=== PATIENT | female | born 1955 | race Caucasian/White ===

== ENCOUNTER 2019-07-11 09:27 | Inpatient (IN) ==
--- NOTE | 2019-07-11 09:35 | PROVIDER DOCUMENTATION ---
HPI-General Adult - General Stated Complaint: SHORTNESS OF BREATH Time Seen by Provider: 07/11/19 09:34 Source: patient Allergies/Adverse Reactions: Patient Allergies Allergy/AdvReac Type Severity Reaction Status Date / Time NSAIDS (Non-Steroidal Allergy ANAPHYLAXIS Verified 07/11/19 10:22 Anti-Inflamma Home Medications: Home Medication List Medication Instructions Recorded Confirmed Last Taken Type Bupropion [Wellbutrin] 100 mg PO DAILY 07/07/16 07/11/19 Unknown History Citalopram Hydrobromide [Celexa] 20 mg PO DAILY 07/07/16 07/11/19 Unknown History Losartan/Hydrochlorothiazide 50 mg PO DAILY 07/07/16 07/11/19 Unknown History [Losartan-Hctz 100-12.5 mg Tab] Metoprolol [Lopressor] 50 mg PO DAILY 07/07/16 07/11/19 Unknown History Ondansetron Odt [Zofran Odt] 4 mg PO TID PRN 07/07/16 07/11/19 Unknown History Cetirizine HCl [Zyrtec] 10 mg PO DAILY 07/08/16 07/11/19 Unknown History Venlafaxine E.r. [Effexor Xr] 150 mg PO DAILY 08/23/18 07/11/19 Unknown History Amlodipine [Norvasc] 5 mg PO DAILY 07/11/19 07/11/19 Unknown History Tizanidine [Zanaflex] 4 mg PO BID 07/11/19 07/11/19 Unknown History - History of Present Illness -Gen Adult Nature of Presenting Problems: Pt. is 64 yof that presents with c/o SOB. Pt. reports symptoms for two weeks. She states she has been to med surg twice and is currently on her second round of levaquin for the treatment of pneumonia. Pt. reports she is still SOB and doesn't feel well. Pt. denies any fever or other symptoms. Location of Pain/Injury: reports: none. denies: head, face, mouth, neck, chest, upper extremity, hand(s), abdomen, back, pelvis, genitalia, lower extremity, feet, upper body, lower body, generalized, other Pain Radiation: reports: no radiation. denies: arm(s), back, buttocks, chest, epigastric, feet, groin, jaw, flank (L), legs (lower), LLQ, LUQ, neck, periumbilical, flank (R), RLQ, RUQ, shoulder(s), scapula, scrotal, sternal notch, suprapubic, legs (upper), urethral, vaginal, other Quality of Pain: reports: none. denies: aching, pressure, tightness Severity: reports: moderate. denies: mild, severe Onset/Duration: reports: gradual, other (Two weeks) Timing: reports: still present Context/Activities at Onset: reports: none. denies: light activity, moderate activity, vigorous activity, recent emotional stress, recent physical stress, recent trauma history, possible bad food, cold exposure, eating, out of country travel, rest, sleep, sexual activity, other Modifying Factors: improves with: nothing Associated Symptoms: reports: shortness of breath. denies: denies symptoms, anxiety, arm pain, back/neck pain, chest pain, constipation, cough, diaphoresis, diarrhea, dizziness, EENT symptoms, fatigue, fever/chills, genitourinary problems, headaches, heartburn, joint pain, loss of appetite, malaise, muscle aches, sinus congestion/drainage, nausea, rash, seizure, sensory/motor loss, pain with inspiration, swelling/mass in abdomen, syncope, vomiting, weakness, trouble walking, other Similar Symptoms Previously?: Yes Recently seen or treated by another doctor?: Yes Review of Systems - Adult - REVIEW OF SYSTEMS - ADULT Constitutional: reports: no symptoms reported Eyes: reports: no symptoms reported Ears, Nose, Mouth & Throat: reports: no symptoms reported Cardiovascular: reports: no symptoms reported Respiratory: reports: see HPI, dyspnea on exertion, shortness of breath. denies: chronic cough, cough, hemoptysis Gastrointestinal: reports: no symptoms reported Genitourinary: reports: no symptoms reported Musculoskeletal: reports: no symptoms reported Integumentary: reports: no symptoms reported Neurological: reports: no symptoms reported Psychiatric: reports: no symptoms reported Past History - Adult - PAST MEDICAL HISTORY-ADULT Review of Records: reports: Old Records Reviewed, Nursing Assessment Review, Medications Reviewed, Social history reviewed & non-contributory. Major Childhood Illnesses: reports: denies history Cardiovascular: reports: HTN Respiratory: reports: asthma Gastrointestinal: reports: IBS Obstetrical/Gynecological: reports: denies history Genitourinary: reports: denies history Musculoskeletal: reports: denies history Neurological: reports: denies history Endocrine/Immune: reports: denies history Other Conditions: reports: denies history - PRIOR SURGERIES/PROCEDURES Surgical/Procedure History: reports: appendectomy, hysterectomy, other (Lap Band 6 years ago) - IMMUNIZATION STATUS Childhood Immunizations: See Nurse Assessment Flu Vaccine: See Nurse Assessment - FAMILY HISTORY Family History: reviewed, not pertinent - SOCIAL HISTORY Smoking: denies Physical Exam-General - PHYSICAL EXAM-ADULT Initial Vital Signs Reviewed: Yes - CONSTITUTIONAL General Appearance: alert, mild distress, obese. negative: anxious, slow to respond, obtunded, combative - EYES Eyes: PERRL/EOMI, pink conjunctivae - HEAD, EARS, NOSE, MOUTH & THROAT HENMT: normocephalic/atraumatic, moist mucous membranes - NECK Neck: non-tender, full range of motion, supple, normal inspection - RESPIRATORY Respiratory: lungs clear, normal breath sounds. negative: crackles, rales, rhonchi, stridor, wheezing - CARDIOVASCULAR Cardiovascular: regular rate, rhythm, bradycardia - GASTROINTESTINAL (ABDOMEN) Abdominal Exam: normal bowel sounds, non tender, soft - LYMPHATIC Lymphatic: no adenopathy - MUSCULOSKELETAL Back Exam: normal inspection, no CVA tenderness, no vertebral tenderness Extremity: normal range of motion, non-tender, normal gait, normal inspection Peripheral Pulses: radial (R): 2+, radial (L): 2+ - SKIN Integumentary: normal color, normal turgor, warm/dry - NEUROLOGIC Neurologic: grossly normal, no motor/sensory deficits - PSYCHIATRIC Psych/Mental Status: normal mood/affect, normal thought content, normal thought process, oriented x 3. negative: anxious, paranoid, tearful Progress - PLAN OF CARE/RESULTS Progress/Plan/Lab Results: Laboratory Tests 07/11/19 07/11/19 07/11/19 10:25 10:28 10:28 WBC 11.53 H RBC 3.65 L Hgb 11.7 L Hct 36.4 L MCV 99.7 H MCH 32.1 H MCHC 32.1 L RDW Std Deviation 14.7 H Plt Count 321 MPV 9.7 Immature Gran % (Auto) 0.6 H Neut % (Auto) 70.1 Lymph % (Auto) 16.8 L [place] % (Auto) 9.8 H Eos % (Auto) 2.4 Baso % (Auto) 0.3 Immature Gran # (Auto) 0.07 H Neut # (Auto) 8.07 H Lymph # (Auto) 1.94 [place] # (Auto) 1.13 H Eos # (Auto) 0.28 Baso # (Auto) 0.04 D-Dimer, Quantitative Specimen Type ARTERIAL Sample Site R RADIAL pH 7.43 pCO2 40 pO2 82 HCO3 26.5 H Base Excess 2.0 Oxyhemoglobin 95.4 ABG O2 Sat (Calculated) 15.5 ABG O2 Saturation 97.5 ABG Carboxyhemoglobin 1.30 ABG Methemoglobin 0.8 Prabhjot Test YES A-a O2 Difference 18.0 Total Hemoglobin 11.5 Lactate 1.60 Blood Gas Modality ROOM AIR FiO2 % 21.0 Sodium Potassium Chloride Carbon Dioxide Anion Gap BUN Creatinine Estimated GFR/1.73 m2 BUN/Creatinine Ratio Glucose Calculated Osmolality Calcium Total Bilirubin AST ALT Alkaline Phosphatase Creatine Kinase Troponin T Ogb-V-Lxkznulnwwd Pept 200 Total Protein Albumin Globulin Albumin/Globulin Ratio Plasma Lactate Urine Source Urine Color Urine Turbidity Urine pH Ur Specific [place] Urine Protein Ur Glucose (Stick) Ur Ketones (Stick) Urine Blood Urine Nitrite Urine Bilirubin Urobilinogen Dipstick Urine Leukocytes Urine WBC (Auto) Urine RBC (Auto) U Epithel Cells (Auto) Urine Bacteria (Auto) 07/11/19 07/11/19 07/11/19 10:28 10:28 10:28 WBC RBC Hgb Hct MCV MCH MCHC RDW Std Deviation Plt Count MPV Immature Gran % (Auto) Neut % (Auto) Lymph % (Auto) [place] % (Auto) Eos % (Auto) Baso % (Auto) Immature Gran # (Auto) Neut # (Auto) Lymph # (Auto) [place] # (Auto) Eos # (Auto) Baso # (Auto) D-Dimer, Quantitative 0.35 Specimen Type Sample Site pH pCO2 pO2 HCO3 Base Excess Oxyhemoglobin ABG O2 Sat (Calculated) ABG O2 Saturation ABG Carboxyhemoglobin ABG Methemoglobin Prabhjot Test A-a O2 Difference Total Hemoglobin Lactate Blood Gas Modality FiO2 % Sodium 134 L Potassium 4.9 Chloride 95 L Carbon Dioxide 29 Anion Gap 10 BUN 28 H Creatinine 1.0 H Estimated GFR/1.73 m2 56 BUN/Creatinine Ratio 28 Glucose 127 H Calculated Osmolality 275 Calcium 9.5 Total Bilirubin < 0.15 L AST 15 ALT 9 L Alkaline Phosphatase 86 Creatine Kinase 59 Troponin T < 0.010 Ioi-E-Umzmndnparg Pept Total Protein 6.2 L Albumin 3.7 Globulin 2.5 Albumin/Globulin Ratio 1.5 Plasma Lactate Urine Source Urine Color Urine Turbidity Urine pH Ur Specific [place] Urine Protein Ur Glucose (Stick) Ur Ketones (Stick) Urine Blood Urine Nitrite Urine Bilirubin Urobilinogen Dipstick Urine Leukocytes Urine WBC (Auto) Urine RBC (Auto) U Epithel Cells (Auto) Urine Bacteria (Auto) 07/11/19 07/11/19 10:29 10:51 WBC RBC Hgb Hct MCV MCH MCHC RDW Std Deviation Plt Count MPV Immature Gran % (Auto) Neut % (Auto) Lymph % (Auto) [place] % (Auto) Eos % (Auto) Baso % (Auto) Immature Gran # (Auto) Neut # (Auto) Lymph # (Auto) [place] # (Auto) Eos # (Auto) Baso # (Auto) D-Dimer, Quantitative Specimen Type Sample Site pH pCO2 pO2 HCO3 Base Excess Oxyhemoglobin ABG O2 Sat (Calculated) ABG O2 Saturation ABG Carboxyhemoglobin ABG Methemoglobin Prabhjot Test A-a O2 Difference Total Hemoglobin Lactate Blood Gas Modality FiO2 % Sodium Potassium Chloride Carbon Dioxide Anion Gap BUN Creatinine Estimated GFR/1.73 m2 BUN/Creatinine Ratio Glucose Calculated Osmolality Calcium Total Bilirubin AST ALT Alkaline Phosphatase Creatine Kinase Troponin T Grn-Z-Gmkisjeialf Pept Total Protein Albumin Globulin Albumin/Globulin Ratio Plasma Lactate 1.5 Urine Source CLEAN CATCH Urine Color YELLOW Urine Turbidity CLEAR Urine pH 6.0 Ur Specific [place] 1.018 Urine Protein NEGATIVE Ur Glucose (Stick) NEGATIVE Ur Ketones (Stick) NEGATIVE Urine Blood NEGATIVE Urine Nitrite NEGATIVE Urine Bilirubin NEGATIVE Urobilinogen Dipstick NORMAL Urine Leukocytes NEGATIVE Urine WBC (Auto) <10 Urine RBC (Auto) <10 U Epithel Cells (Auto) <10 Urine Bacteria (Auto) NEGATIVE Discussed results and plan of care with patient. Patient agrees with plan and verbalizes understanding. Result Diagrams: 07/11/19 10:28 07/11/19 10:28 - EKG 1 Time of EKG reading by physician:: 10:41 EKG Read and Signed by:: Juan M Macedo EKG Interpretation (*Must complete 3 of following elements*): Abnormal Rate: 56 Rhythm: Sinus wilson QRS: poor R wave progression ME Interval: normal - XRAY 1 XRAY Study: Chest ([facility] - [address], [address], [place] [address] [facility] [place] [address] Department of Imaging Patient: JOHN RESENDIZ AADM Date: 07/11/19MR#: [id number] : 1955DM Status: PRE ERAcct#: [id number] Age/Sex: 64/FRoom/Bed: Loc: ED Ordering Physician: Jhonny Rick Family Physician: Pam Tripp Reason for Procedure: SOB Signed CHEST-2 VIEWS - 07/11/2019 INDICATION: SOB COMPARISON: 09/19/2011 FINDINGS: The lungs are normally expanded and clear. Heart size and mediastinal contours are normal. No pneumothorax or pleural effusion. There is a lap band in good position. IMPRESSION: Negative exam. Electronically signed by Blas Infante 07/11/2019 9:58 AM 07/11/19 0958 Interpreting Physician: Blas Infante MD Dictated Date/Time: 07/11/19 0956 cc: Jhonny Rick; Pam Tripp MD) XRAY Interpretation: See note - CT/MRI 1 CT Study: Thorax ([facility] - [address] [facility], [address], [place] [address] [facility] [place] [address] Department of Imaging Patient: JOHN RESENDIZ AADM Date: 07/11/19MR#: [id number] : 1955DM Status: REG ERAcct#: [id number] Age/Sex: 64/FRoom/Bed: Loc: ED Ordering Physician: Jhonny Rick Family Physician: Pam Tripp Reason for Procedure: Persistant SOB ____ Signed CT THORAX W/CONTRAST - 07/11/2019 INDICATION: Persistant SOB COMPARISON: Previous chest x-ray FINDINGS: There is no adenopathy. Heart and great vessels are normal. There is a lap band in good position. There is significant constipation of the visible portion of the colon. There is advanced COPD. There is some plate like atelectasis of the lower lobes bilaterally. Otherwise, no infiltrates or edema. Bones are intact and well mineralized. IMPRESSION: Advanced COPD. Plate like atelectasis in the lung bases. Significant constipation. This exam was performed using automated exposure control, adjustment of mA or kV according to patient size, and/or use of iterative reconstruction technique Electronically signed by Blas Infante 07/11/2019 12:00 PM 07/11/19 1200 Interpreting Physician: Blas Infante MD Dictated Date/Time: 07/11/19 1158 cc: Jhonny Rick; Pam Tripp MD) CT Results: See note - CONSULTS/PCP/HOSPITALIST Notification #1 *Consult/PCP/Hospitalist*: Margarita Glover Time Discussed: 12:23 Reason/Comments: Admission Consult Disposition: Will see in ED, Admit Departure - Departure Date of Disposition Decision: 07/11/19 Time of Disposition Decision: 12:06 DIAGNOSIS: COPD exacerbation, Renal insufficiency, Hyperglycemia Disposition: ADMITTED INPATIENT 09 Certified Medical Emergency: Emergent Condition: Stable Referrals and Follow-Ups: Pam Tripp MD [Primary Care Provider] - - Critical Care Note This patient required my direct & personal management of CC.: No Attestation - Physician/ JESSICA Attestation Patient care was provided by Advanced Practice Provider:: Yes Advanced Practice Provider:: Jhonny Rick Advanced Practice Provider documentation review:: The Mid-level provider documentation, treatment plan and medical decision making was reviewed by the physician who agrees with all treatment and medical decision making by the MLP. The physician spent face to face time with patient:: No Advanced Practice Provider documentation review:: Supervising physician onsite and consulted in the evaluation and care of this patient. The physician did not have a face to face encounter with the patient.
[2019-07-11] MEDS ORDERED: DUONEB (A & A) INH ONE (09:59)
[2019-07-11] MEDS ORDERED: SOLU-MEDROL IV ONE (10:00)
--- NOTE | 2019-07-11 10:00 | Diag Imaging Result Doc PS360 ---
CHEST-2 VIEWS - 07/11/2019 INDICATION: SOB COMPARISON: 09/19/2011 FINDINGS: The lungs are normally expanded and clear. Heart size and mediastinal contours are normal. No pneumothorax or pleural effusion. There is a lap band in good position. IMPRESSION: Negative exam. Electronically signed by Blas Infante 07/11/2019 9:58 AM
[2019-07-11 10:34] LABS: ALLEN TEST YES; BLOOD TYPE ARTERIAL; HCO3-(ACT) 26.5 mmoll (20.0-26.0); METHB 0.8 % (0.0-1.5); O2(CT) 15.5 mL/dL (15.0-23.0); O2HB 95.4 % (95.0-99.0); PCO2(98.6) 40 mmHg (35-45); PO2(98.6) 82 mmHg (60-100); SAMPLE BLOOD; SAO2 97.5 % (95.0-100.0); THB 11.5 g/dL (11.5-17.4); pH(98.6) 7.43 (7.35-7.45)
[2019-07-11 10:35] LABS: MODALITY ROOM AIR
[2019-07-11 10:52] LABS: BASO# 0.04 X1000 (0.0-0.2); BASO% 0.3 % (0.0-0.8); EOS# 0.28 X1000 (0.0-0.7); EOS% 2.4 % (0.0-10.0); HEMATOCRIT 36.4 % (37.0-47.0); HEMOGLOBIN 11.7 g/dL (12.0-16.0); IMM GRAN# 0.07 X1000 (0.0-0.04); IMM GRAN% 0.6 % (0.0-0.5); LYMPH# 1.94 X1000 (1.2-3.4); LYMPH% 16.8 % (20.5-51.1); MCH 32.1 PG (27-31); MCHC 32.1 g/dL (33-37); MCV 99.7 FL (81-99); MONO# 1.13 X1000 (0.11-0.59); MONO% 9.8 % (1.7-9.3); MPV 9.7 FL (7.4-10.4); NEUT# 8.07 X1000 (1.4-6.5); NEUT% 70.1 % (42.2-75.2); PLT 321 X1000 (130-400); RBC 3.65 XMIL (4.2-5.4); RDW 14.7 % (11.5-14.5); WBC 11.53 X1000 (4.8-10.8)
[2019-07-11 11:06] LABS: URINE SOURCE CLEAN CATCH
[2019-07-11 11:17] LABS: AGAP 10; ALB/GLOB RATIO 1.5; ALBUMIN 3.7 g/dL (3.5-5.0); ALKALINE PHOSPHATASE 86 U/L (32-104); BUN 28 mg/dL (8-22); CALCIUM 9.5 mg/dL (8.8-10.2); CHLORIDE 95 mmol/L (98-107); CK PROFILE 59 U/L (24-173); COSMO 275; ESTIMATED GFR 56; GLUCOSE 127 mg/dL (70-104); GOT 15 U/L (10-30); GPT 9 U/L (10-36); POTASSIUM 4.9 mmol/L (3.5-5.1); SODIUM 134 mmol/L (136-145); TCO2 29 mmol/L (25-35); TOTAL BILIRUBIN < 0.15 mg/dL (0.20-1.00); TOTAL PROTEIN 6.2 g/dL (6.3-8.3)
[2019-07-11 11:22] LABS: BILIRUBIN URINE NEGATIVE (NEGATIVE); BLOOD URINE NEGATIVE (NEGATIVE); COLOR YELLOW; GLUCOSE URINE NEGATIVE (NEGATIVE); KETONE URINE NEGATIVE (NEGATIVE); LEUKOCYTES URINE NEGATIVE (NEGATIVE); NITRITE URINE NEGATIVE (NEGATIVE); PROTEIN URINE NEGATIVE (NEGATIVE); SP GRAVITY URINE 1.018; TURBIDITY URINE CLEAR (CLEAR); UROBILINOGEN URINE NORMAL (NORMAL)
[2019-07-11 11:23] LABS: UR EPITHELIAL CELLS <10 /HPF (<10); URINE BACTERIA NEGATIVE /HPF; URINE RBC <10 /HPF (<10); URINE WBC <10 /HPF (<10)
--- NOTE | 2019-07-11 11:42 | EKG Report ---
Test Performed on : 07/11/2019 10:36:23 AM Test Reason : SOB Blood Pressure : / mmHG Vent. Rate : 056 BPM Atrial Rate : 056 BPM P-R Int : 168 ms QRS Dur : 086 ms QT Int : 454 ms P-R-T Axes : 046 -15 016 degrees QTc Int : 438 ms Sinus bradycardia. Cannot rule out Anterior infarct , age undetermined Abnormal ECG When compared with ECG of 23-AUG-2018 09:40, No significant change was found Unconfirmed Result
--- NOTE | 2019-07-11 12:03 | Diag Imaging Result Doc PS360 ---
CT THORAX W/CONTRAST - 07/11/2019 INDICATION: Persistant SOB COMPARISON: Previous chest x-ray FINDINGS: There is no adenopathy. Heart and great vessels are normal. There is a lap band in good position. There is significant constipation of the visible portion of the colon. There is advanced COPD. There is some plate like atelectasis of the lower lobes bilaterally. Otherwise, no infiltrates or edema. Bones are intact and well mineralized. IMPRESSION: Advanced COPD. Plate like atelectasis in the lung bases. Significant constipation. This exam was performed using automated exposure control, adjustment of mA or kV according to patient size, and/or use of iterative reconstruction technique Electronically signed by Blas Infante 07/11/2019 12:00 PM
--- NOTE | 2019-07-11 14:22 | HISTORY AND PHYSICAL ---
PRIMARY CARE PHYSICIAN: Pam Tripp MD CHIEF COMPLAINT: Shortness of breath times 2 weeks that has progressively worsened. HISTORY OF PRESENTING ILLNESS: This is a 64-year-old female who presents to [facility] with complaints of shortness of breath over the last 2 weeks that has progressively worsened. She states that she has been to a med/surg walk-in clinic twice and has finished up her second round of Levaquin for pneumonia. When she arrived she had an O2 saturation of 86% on room air. She states that she has never been diagnosed with COPD but is a former smoker quitting 16 years ago. Her chest x-ray was negative so we did a chest CT and it showed advanced COPD, platelike atelectasis in the lung bases, and some significant constipation. So, she will be admitted for further evaluation and treatment. PAST MEDICAL HISTORY: Asthma, migraines, hypertension, and IBS. PAST SURGICAL HISTORY: Appendectomy, hysterectomy, and a Lap Band 6 years ago. FAMILY HISTORY: Reviewed and noncontributory. SOCIAL HISTORY: She currently lives alone. She is a former smoker but quit 16 years ago. Denied any alcohol or illicit drug use. ALLERGIES: NSAIDs. HOME MEDICATIONS: We will obtain a current list reconcile, restart, and review. We will place an order for nursing to update and confirm home medications. LABORATORY DATA: She had a white blood cell count of 11.53, hemoglobin 11.7, hematocrit 36.4, and platelets 321. D-dimer was 0.35. ABG with a pH of 7.43, pCO2 of 40, pO2 of 82, and bicarb of 26.5 and this was on room air. Sodium was 134, potassium 4.9, chloride 95, CO2 29, BUN 28, creatinine 1, and glucose 127. Cardiac enzymes were negative. ProBNP of 200. Plasma lactate was 1.5. Urinalysis was negative. EKG shows sinus bradycardia at 56. Chest x-ray showed a negative exam. Chest CT showed advanced COPD with platelike atelectasis in the lung bases with significant constipation. REVIEW OF SYSTEMS: She denied any fever, chills, blurred vision, dizziness, chest pain, or coughing. She did have shortness of breath. Denied any abdominal pain. She was positive for constipation. Denied diarrhea. Denied any nausea, vomiting, or burning or hurting with urination. PHYSICAL EXAMINATION: VITAL SIGNS: On arrival she had a temperature of 97.4, pulse 56, respirations 20, blood pressure 86/66, and she was saturating 86% on room air. Currently blood pressure is up to 107/62 and heart rate is up to 63. GENERAL: This is a 64-year-old female who is lying in the bed and answers questions appropriately. HEENT: Normocephalic and atraumatic. Normal ENT inspection. Oropharynx and nares are clear. NECK: Normal inspection. Normal range of motion. LUNGS: Clear to auscultation bilaterally with equal lung expansion and chest wall movement. HEART: Regular rate and rhythm. No murmurs, rubs, or gallops. ABDOMEN: Soft, nontender, and nondistended. Bowel sounds are present times 4 quadrants. MUSCULOSKELETAL: She has 5/5 strength times 4 extremities. NEUROLOGICAL: Cranial nerves 2 through 12 appear grossly intact. ASSESSMENT: 1. Acute chronic obstructive pulmonary disease exacerbation. 2. Acute respiratory failure. 3. Significant constipation. 4. Hypotension on arrival. That has now resolved. PLAN: She will be admitted to the Medical Unit, placed on telemetry and O2 per protocol, incentive spirometry, DuoNebs every 4 hours, Solu-Medrol 80 mg IV every 8 hours and we will wean as she improves, normal saline at 75 mL/hr, Rocephin 1 g IV every 24 hours, azithromycin 500 mg IV every 24 hours, SCDs for DVT prophylaxis, and we are going to add some MiraLAX 17 g p.o. daily. Recheck a CBC and BMP in the a.m. Further orders after seen by attending. Dictated by LUCILA Nur for Rivera Glover MD cc: LUCILA García agree with the above. the following is my own face to face assessment. mildly decreased air entry throughout. minimal end expiratory wheezing. will give nebs and steroids and if she improves then can likely be discharged tomorrow. MTDD
[2019-07-11] MEDS ORDERED: TYLENOL PO PRN (14:45)
[2019-07-11] MEDS ORDERED: ZOFRAN IV PRN (14:45)
[2019-07-11] MEDS ORDERED: ZOFRAN ODT PO PRN (14:45)
[2019-07-11] MEDS: DUONEB (A & A) INH SCH ×3 (15:58→23:16)
[2019-07-11] MEDS: SOLU-MEDROL IV SCH (18:51)
[2019-07-11] MEDS: MIRALAX PO SCH (18:51)
[2019-07-11] MEDS: SINGULAIR PO SCH (18:51)
[2019-07-11] MEDS: ROCEPHIN 1 GM in NS 50 ML IV SCH (18:51)
[2019-07-11] MEDS: ZITHROMAX 500 MG/NS 500 MG/250 ML IVPB IV SCH (18:52)
[2019-07-11] MEDS: NS 1,000 ML IV SCH (18:52)
[2019-07-11] MEDS: ZANAFLEX PO SCH (21:07)
[2019-07-12] MEDS: DUONEB (A & A) INH SCH ×6 (03:13→23:20)
[2019-07-12] MEDS: SOLU-MEDROL IV SCH ×3 (03:36→17:24)
[2019-07-12 05:07] LABS: BASO# 0.01 X1000 (0.0-0.2); BASO% 0.1 % (0.0-0.8); HEMATOCRIT 37.2 % (37.0-47.0); IMM GRAN# 0.06 X1000 (0.0-0.04); IMM GRAN% 0.4 % (0.0-0.5); LYMPH# 1.15 X1000 (1.2-3.4); LYMPH% 8.3 % (20.5-51.1); MCH 32.2 PG (27-31); MCHC 32.3 g/dL (33-37); MCV 99.7 FL (81-99); MONO# 0.32 X1000 (0.11-0.59); MONO% 2.3 % (1.7-9.3); MPV 9.1 FL (7.4-10.4); NEUT# 12.34 X1000 (1.4-6.5); NEUT% 88.9 % (42.2-75.2); PLT 331 X1000 (130-400); RBC 3.73 XMIL (4.2-5.4); RDW 14.9 % (11.5-14.5); WBC 13.88 X1000 (4.8-10.8)
[2019-07-12 05:53] LABS: CALCIUM 8.9 mg/dL (8.8-10.2); POTASSIUM 4.7 mmol/L (3.5-5.1)
[2019-07-12 07:30] LABS: LYMPHS 13 % (21-51); MONO 2 % (1-9); SEGS 85 % (42-75)
[2019-07-12] MEDS ORDERED: NORVASC PO SCH (09:00)
[2019-07-12] MEDS ORDERED: HYZAAR 100/12.5 MG TAB PO SCH (09:00)
[2019-07-12] MEDS: MIRALAX PO SCH (09:48)
[2019-07-12] MEDS: CELEXA PO SCH (09:49)
[2019-07-12] MEDS: WELLBUTRIN PO SCH (09:49)
[2019-07-12] MEDS: SINGULAIR PO SCH (09:49)
[2019-07-12] MEDS: ZANAFLEX PO SCH ×2 (09:49→21:07)
[2019-07-12] MEDS: ZYRTEC PO SCH (09:49)
[2019-07-12] MEDS: NS 1,000 ML IV SCH ×3 (09:55→21:11)
[2019-07-12] MEDS: EFFEXOR XR PO SCH (11:00)
[2019-07-12 12:45] LABS: ALLEN TEST YES; BLOOD TYPE ARTERIAL; HCO3-(ACT) 22.6 mmoll (20.0-26.0); PCO2(98.6) 31 mmHg (35-45); SAMPLE BLOOD; pH(98.6) 7.43 (7.35-7.45)
[2019-07-12 12:49] LABS: O2(CT) 14.2 mL/dL (15.0-23.0); O2HB 96.7 % (95.0-99.0); PO2(98.6) 83 mmHg (60-100); SAO2 99.5 % (95.0-100.0); THB 10.4 g/dL (11.5-17.4)
[2019-07-12 12:50] LABS: MODALITY ROOM AIR
[2019-07-12] MEDS: ROCEPHIN 1 GM in NS 50 ML IV SCH (14:38)
[2019-07-12] MEDS: ZITHROMAX 500 MG/NS 500 MG/250 ML IVPB IV SCH (15:30)
--- NOTE | 2019-07-12 16:02 | PROGRESS NOTE ---
DATE: 07/12/2019 INTERVAL HISTORY: The patient reports still some nonproductive cough but improvement in her subjective dyspnea. Cough was somewhat improved. Afebrile overnight. Denies fever, chills, leg swelling, calf pain, hemoptysis, dysuria, nausea, vomiting, diarrhea. REVIEW OF SYSTEMS: Twelve point review of systems negative except as per interval history. LABS: WBC 13.8, hemoglobin 12, hematocrit 37.2, platelet 331,000. ABG with pH 7.43, pCO2 31, PO2 83, O2 saturation 99% on room air. Lactate 5.8. Sodium 136, potassium 4.7, bicarb 21, chloride 96, BUN 22, creatinine 1.0, glucose 174. Urinalysis unremarkable. VITALS: T-max 98.6 degrees, pulse 76, respirations 18, blood pressure 96/47, O2 saturation 96% on room air. PHYSICAL EXAMINATION: General: No acute distress. Vitals: As above. HEENT: Normocephalic, atraumatic. Moist mucous membranes. No cervical adenopathy. Cardiovascular: Regular rate and rhythm. No murmurs noted. Pulmonary: Minimally decreased breath sounds throughout but no wheezing, rales, or rhonchi. Abdomen: Soft, nontender, nondistended. Bowel sounds positive. Extremities: Peripheral pulses intact. No clubbing, cyanosis or edema. No calf tenderness. Homans sign negative. Neurologic: Cranial nerves grossly intact. No focal deficits identified. Psychiatric: Normal mood and affect. Awake, alert, oriented x3. Skin: No new rashes or lesions identified. ASSESSMENT AND PLAN: 1. Chronic obstructive pulmonary disease with possible mild exacerbation. The patient's dyspnea improved. No further wheezing with nebulizers and steroids overnight. 2. Lactic acidosis, uncertain source. No sign of bacterial infection identified on initial workup with urinalysis and chest CT. The patient is asymptomatically improved. Oxygen looks good. Blood pressure slightly low but stable. Holding all home blood pressure medications. We will increase fluids. A little to suggest DENZEL, but she does appear to be hyperventilating somewhat on ABG so we will get a CTA to rule out clot as a cause. Initially planned on discontinuing Rocephin and azithromycin as no sign of infection has been identified, but we will continue those for now given unexplained lactic acidosis. 3. CKD 3. Creatinine stable. 4. Hypertension. Holding home blood pressure medications as above.
[2019-07-13] MEDS: SOLU-MEDROL IV SCH ×3 (03:10→17:30)
[2019-07-13] MEDS: DUONEB (A & A) INH SCH ×6 (04:03→23:09)
[2019-07-13 07:45] LABS: BASO# 0.01 X1000 (0.0-0.2); HEMATOCRIT 36.5 % (37.0-47.0); HEMOGLOBIN 12.1 g/dL (12.0-16.0); IMM GRAN# 0.15 X1000 (0.0-0.04); IMM GRAN% 0.5 % (0.0-0.5); LYMPH# 0.66 X1000 (1.2-3.4); LYMPH% 2.4 % (20.5-51.1); MCHC 33.2 g/dL (33-37); MCV 96.6 FL (81-99); MONO# 0.95 X1000 (0.11-0.59); MONO% 3.4 % (1.7-9.3); NEUT# 25.87 X1000 (1.4-6.5); NEUT% 93.7 % (42.2-75.2); PLT 370 X1000 (130-400); RBC 3.78 XMIL (4.2-5.4); RDW 14.9 % (11.5-14.5); WBC 27.64 X1000 (4.8-10.8)
[2019-07-13] MEDS: NS 1,000 ML IV SCH ×3 (07:45→21:46)
[2019-07-13 08:00] LABS: AGAP 16; BUN 20 mg/dL (8-22); CALCIUM 9.3 mg/dL (8.8-10.2); CHLORIDE 99 mmol/L (98-107); COSMO 279; CREATININE 0.8 mg/dL (0.5-0.9); ESTIMATED GFR > 60; GLUCOSE 141 mg/dL (70-104); POTASSIUM 4.2 mmol/L (3.5-5.1); SODIUM 137 mmol/L (136-145); TCO2 22 mmol/L (25-35)
[2019-07-13 08:32] LABS: BANDS 1 % (0-1); LYMPHS 5 % (21-51); MONO 1 % (1-9); SEGS 93 % (42-75)
--- NOTE | 2019-07-13 09:09 | Diag Imaging Result Doc PS360 ---
EXAM: CT ANGIOGRM PULMONARY ARTERIES INDICATION: cough, dyspnea, elevated lactate TECHNIQUE: This exam was performed using automated exposure control, adjustment of mA or kV according to patient size, and/or use of iterative reconstruction technique. Thin section axial images and 3-D MIPS were obtained. COMPARISON: 09/20/2011 FINDINGS: The contrast bolus is somewhat limited with poor opacification of the distal branches. This may limit sensitivity for detecting small distal pulmonary emboli. However, no discrete filling defect is identified to indicate pulmonary embolism. There is patchy moderate atherosclerotic disease throughout the thoracic aorta. There is no evidence of aortic aneurysm or dissection. There is no cardiomegaly. There is no evidence of significant mediastinal or hilar lymphadenopathy. There is moderate centrilobular emphysema with an upper lobe predominance. There is fairly mild subsegmental atelectasis at both lung bases. The lungs are clear, otherwise. There is no pleural fluid collection and no pneumothorax. Limited views of the upper abdomen reveals a lap band in place. There is a small hiatal hernia. IMPRESSION: 1.Mild subsegmental atelectasis at the lung bases. 2.No evidence of pulmonary embolism. 3.Other incidental/nonacute findings detailed above. Electronically signed by Jean Paul Mohr 07/13/2019 9:07 AM
[2019-07-13] MEDS: WELLBUTRIN PO SCH (09:10)
[2019-07-13] MEDS: EFFEXOR XR PO SCH (09:10)
[2019-07-13] MEDS: SINGULAIR PO SCH (09:10)
[2019-07-13] MEDS: ZYRTEC PO SCH (09:11)
[2019-07-13] MEDS: MIRALAX PO SCH (09:11)
[2019-07-13] MEDS: CELEXA PO SCH (09:11)
[2019-07-13] MEDS: ZANAFLEX PO SCH ×2 (09:11→21:43)
--- NOTE | 2019-07-13 16:12 | PROGRESS NOTE ---
DATE: 07/13/2019 The patient admitted on 07/11, followed by Pam Tripp MD. She has shortness of breath x2 weeks, progressively worsened. A 64-year-old female presented to [facility] for complaints of shortness of breath over the last 2 weeks, progressively worsened. States she has been to [facility] [place] and finished her 2nd round of Levaquin for pneumonia. When she arrived, she had O2 saturation of 86% on room air. Never been diagnosis COPD, but she quit smoking about 16 years ago. Chest x-ray was negative. She had Chest CT, and it showed advanced COPD, platelike atelectasis in the lung bases, and some significant constipation. PAST MEDICAL HISTORY: Asthma, migraine headaches, hypertension, irritable bowel syndrome. PAST SURGICAL HISTORY: Appendectomy, hysterectomy, a Lap-Band about 6 years ago. ADMISSION DIAGNOSES: 1. Acute on chronic obstructive pulmonary disease exacerbation. 2. Acute respiratory failure. 3. Significant constipation. 4. Had a little bit of hypotension on arrival. EXAM: Vitals: Today she is breathing comfortably. Remains afebrile, temperature 97.3 degrees, pulse 86, respirations 16, blood pressure 125/68. HEENT: Pupils are equal and round. Lungs: Clear in all lung nielsen. Cardiovascular: Regular rhythm and rate without murmur or S3. URINE OUTPUT: 2700 mL. ASSESSMENT AND PLAN: 1. Chronic obstructive pulmonary disease, possible mild exacerbation. Dyspnea has improved. No further wheezing. Continue nebulizers and steroids. 2. Lactic acid acidosis, uncertain source. No sign of bacterial infection. Workup with urinalysis and chest CT. The patient's symptoms have improved. Oxygen level looks good. Does appear at times to have some hypoventilation. I did get a CTA of the chest. 3. Chronic kidney disease stage 3. Creatinine stable. 4. Hypertension. Chest CT on 07/12: Mild subsegmental atelectasis. No evidence of pulmonary embolism. There were other incidental nonacute findings found. The patient is improving. Continue current orders. We will decrease the methylprednisone down to 40 mg IV q.8. cc: Prabhjot Quevedo MD
[2019-07-13] MEDS: ROCEPHIN 1 GM in NS 50 ML IV SCH (17:39)
[2019-07-13] MEDS: ZITHROMAX 500 MG/NS 500 MG/250 ML IVPB IV SCH (18:26)
[2019-07-14] MEDS: SOLU-MEDROL IV SCH ×2 (02:37→08:45)
[2019-07-14] MEDS: DUONEB (A & A) INH SCH ×3 (03:31→11:16)
[2019-07-14] MEDS: NS 1,000 ML IV SCH (06:52)
[2019-07-14 08:14] VITALS: BP 136/68
[2019-07-14] MEDS: SINGULAIR PO SCH (08:44)
[2019-07-14] MEDS: EFFEXOR XR PO SCH (08:44)
[2019-07-14] MEDS: ZANAFLEX PO SCH (08:45)
[2019-07-14] MEDS: MIRALAX PO SCH (08:45)
[2019-07-14] MEDS: ZYRTEC PO SCH (08:45)
[2019-07-14] MEDS: CELEXA PO SCH (08:45)
[2019-07-14] MEDS: WELLBUTRIN PO SCH (08:45)
--- NOTE | 2019-07-14 13:08 | DISCHARGE SUMMARY ---
ADMISSION DATE: 07/11/2019 DISCHARGE DATE: 07/14/2019 HISTORY OF PRESENT ILLNESS: She is a patient of Dr. Pam Cooper. She has been short of breath now for 2 weeks. A 64 year old who presented to [facility] complaining of shortness of breath the past 2 weeks, progressively worsened. She had gone to the [facility] walk in [facility], finished up her second round of Levaquin. When she arrived., she had O2 saturation of 86% on room air. She has never been diagnosed with COPD that she knows of. She is a former smoker, though quit 16 years ago. Chest x-ray was negative. CT of the chest showed advanced COPD, plate-like atelectasis at the lung bases. History of migraine, hypertension, irritable bowel syndrome. ADMISSION DIAGNOSES: 1. Acute on chronic obstructive pulmonary disease with some bronchospasm. 2. Acute respiratory failure. 3. Significant constipation. 4. Hypotension on arrival. The patient had a chest x-ray on 07/11/2019, negative exam. Lungs are normally expanded and clear. Heart size and mediastinal contours are normal. A CT of the chest showed advanced COPD, plate-like atelectasis of the lung bases, significant constipation. Pulmonary arteriogram with mild subsegmental atelectasis in lung bases. No evidence of pulmonary embolism. The patient showed steady improvement and felt like she wanted to go home on 07/14/2019. Blood cultures were negative. We will see if we can let her go home. She can stop her Zithromax and ceftriaxone. She is on Zyrtec 10 mg a day, Celexa 20 mg a day. I will give her a Medrol Dosepak and Singulair 10 mg p.o. daily, MiraLAX 17 g p.o. daily, Zanaflex 4 mg b.i.d. p.r.n., Effexor ER 150 mg daily. cc: Prabhjot Quevedo MD
[2019-07-14] MEDS ORDERED: PNEUMOVAX 23 IM ONE (14:45)
== END 2019-07-14 15:35 | disposition home or self-care (01) | DRG 191 ==
LOC: ED 09:27 → 1N 09:28 → SUATTDRO 09:28
PROVIDERS: ATTEND Emergency Medicine